=== PATIENT | female | born 1960 | race African-American/Black ===

== ENCOUNTER 2020-04-06 13:57 | Outpatient (CLI) | payer MEDICARE, SELFPAY ==
--- NOTE | ~2020-04-06 | DEXA_ITS ---
Bone Density Report Name: Candy Gaytan Age: 59 Sex: Female Ethnicity: White Date of : 1960 Indication: postmenopausal; prior fracture; Referring Provider: ALONZO DELGADO Study: Bone densitometry was performed. Exam Date: April 06, 2020 Accession number: [id number] Bone Density: Region BMD T-score Z-score Classification AP Spine (L1-L4) 1.015 -0.3 1.1 Normal Femoral Neck (Left) 0.714 -1.2 0.1 Osteopenia Total Hip (Left) 0.974 0.3 1.2 Normal Total Hip Bilateral Avg 0.964 0.2 1.1 Normal Femoral Neck (Right) 0.704 -1.3 0.0 Osteopenia Total Hip (Right) 0.954 0.1 1.0 Normal World Health Organization criteria for BMD impression classify patients as: Normal (T-score at or above -1.0), Osteopenia (T-score between -1.0 and -2.5), or Osteoporosis (T-score at or below -2.5). 10-year Fracture Risk(1): Major Osteoporotic Fracture 13% Hip Fracture 1.0% Reported Risk Factors: [place] (), Neck BMD=0.704, BMI=28.3, previous fracture (1) FRAX(R) Version 3.08. Fracture probability calculated for an untreated patient. Fracture probability may be lower if the patient has received treatment. Clinical Information Provided by Patient: Has had a low trauma fracture Patient maximum height was 61 Menopause Age: 45 Onset of menses at age 15 Number of children 1 Impression: The patient has low bone mass, based on the Right Femoral Neck T-score. The patient has an estimated ten-year risk of hip fracture of 1% and an estimated ten-year risk of major fracture of 13%, based on the WHO FRAX algorithm. The patient has risk factors, including: previous fracture. Discussion: BONE DENSITY IS LOW AT ONE OR MORE SKELETAL SITES. This patient's lowest T-score is low at one or more skeletal sites. It meets the World Health Organization's (WHO) criteria for ?low bone mass? (T-score between -1.0 and -2.5). The patient's 10-year risk of fracture as calculated by FRAX is less than the threshold where pharmacological therapy is recommended by the National Osteoporosis Foundation (NOF). However, all treatment decisions require clinical judgment and consideration of individual patient factors, including patient preferences, comorbidities, previous drug use, risk factors not captured in the FRAX model (e.g., frailty, falls, vitamin D deficiency, increased bone turnover, interval significant decline in bone density) and possible under or overestimation of fracture risk by FRAX. The patient should follow a healthful lifestyle (good nutrition with adequate calcium and vitamin D, and appropriate weight-bearing exercise). Follow-Up: Consider repeating this study in 2 to 3 years to reassess this patient's status, or sooner if there is some new clinical indication. Reported by: MARTINA on 04/06/2020 2:18:00 PM.
== END 2020-04-06 13:58 | disposition home or self-care (01) ==
LOC: ANHIMG 13:59
PROVIDERS: PCP Family Medicine; Visit Provider Obstetrics & Gynecology
DX: Z78.0 Asymptomatic menopausal state (principal); M85.89 Other specified disorders of bone density and structure, multiple sites
CPT/HCPCS: 77080

== ENCOUNTER 2024-08-31 08:04 | Outpatient (CLI) | payer MEDICARE, SELFPAY ==
--- OUTSIDE RECORDS SUMMARY | 2024-08-31 08:13 | XMS_ITS | Clinical Summary ---
Author Organization [facility] Address [address] [place] [address] Phone Care Team Providers Care [employer] Supervisor Name Role Phone Ronna Shi MD Primary Care Provider [phone] Allergies Active Allergy Reactions Criticality Noted Date Comments Codeine Unknown 07/05/2021 Latex Unknown 07/05/2021 Penicillins Unknown 07/05/2021 Prednisone Unknown 07/05/2021 Tramadol Nausea 07/05/2021 Medications cromolyn (OPTICROM) 4 % Solution Place 1 Drop in affected eye(s) 4 times daily. Use in affected eye(s) Active Fluticasone Furoate 27.5 MCG/SPRAY Suspension 2 Puffs by Nasal route daily. Active insulin aspart (NovoLOG) 100 UNIT/ML Solution by Subcutaneous route 3 times daily (after meals). Active Semaglutide,0.2 5 or 0.5MG/DOS, (Ozempic, 0.25 or 0.5 MG/DOSE,) 2 MG/1.5ML Solution Pen-injector by Subcutaneous route. Active pravastatin (PRAVACHOL) 80 MG Tablet Take 80 mg by mouth daily. Active insulin degludec (Tresiba FlexTouch) 200 UNIT/ML Solution Pen-injector by Subcutaneous route. Active Polyethylene Glycol 3350 (MIRALAX PO) Take by mouth. Ac tive DICLOFENAC SODIUM OP Place in affected eye(s). 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 Gender Identity Not on file Sexual Orientation Not on file Last Filed Vital Signs Vital Sign Reading Time Taken Comments Blood Pressure 120/68 11/26/2021 1:34 PM CDT Pulse 98 11/26/2021 1:34 PM CDT Temperature 36.3 ??C (97.3 ??F) 11/26/2021 1:34 PM CD T Respiratory Rate 17 11/26/2021 1:34 PM CDT Oxygen Saturation 100% 11/26/2021 1:34 PM CDT Inhaled Oxygen Concentration - - Weight 78.7 kg (173 lb 6.4 oz) 11/26/2021 1:34 P M CDT Height 154.9 cm (5' 1 ) 11/26/2021 1:34 PM CDT Body Mass Index 32.76 11/26/2021 1:34 PM CDT Plan of Treatment Health Maintenance Due Date Last Done Comments Hepatitis C Virus (HCV) Screening 1960 Pap Smear 1981 Cervical Cancer Screening (CCS) 1990 HPV/Cotest 1990 Cologuard 2010 Immunochemical Fecal Occult Blood 2010 Mammogram 2010 Pneumococcal Immunization (50+ years) (2 of 2 - PCV) 07/12/2022 07/12/2021, 04/16/2020, 04/22/2017 Influenza Immunization (#1) 2024 1011/2020, 04/30/2021, 04/29/2020, Additional history exists SARS-COV-2 Immunization ( season) 2024 05/18/2021, 10/31/2020, 10/03/2020 Colonoscopy 09/11/2031 09/11/2021 Colorectal Cancer Screening 09/11/2031 Respiratory Syncytial Virus (RSV) Immunization (Adult) (1 - 1-dose 75+ series) 2035 09/11/2021 DTaP/Tdap/Td Immunization Discontinued 04/22/2018 TdaP Immunization Completed 04/22/2018 Zoster Immunization Completed 08/09/2020, 0 Pneumococcal Immunization Combined Discontinued 07/12/2021, 04/16/2020, 04/22/2017 Hepatitis B Immunization Aged Out No longer eligible based on patient's age to complete this topic Meningococcal Immunization (ACWY) Aged Out No longer eligible based on patient's age to complete this topic Rotavirus Immunization Aged Out No lo nger eligible based on patient's age to complete this topic Insurance MEDICARE C [employer] Care Teams [employer] M[employer] Supervisor Relationship Specialty Start Date End Date Ronna Shi MD [facility] [place] [address] PCP - [employer] 06/26/21
--- OUTSIDE RECORDS SUMMARY | 2024-08-31 08:13 | XMS_ITS | Data Portability ---
Author Organization [facility] [employer], Main Office Address [address] [place] [address] Care Team Providers Care Clinical Rn Manager Name Role Phone RONNA MAYO Primary Care Provider RONNA MAYO Referring Provider DAVID ETIENNE Tube Filler Assessment No assessment recorded. Plan of Treatment Reminders Order Date Submit Date Provider Last Modified By Organization Details Last Modified Time Details Appointments None recorded. Lab hemoglobin A1C, fingerstick [address], [place], [address], 14:24:28 hemoglobin A1C, fingerstick 2022 023 [email or web address] [address] [place], [place], [address], 3 14:24:26 microalbumi n, urine 2022 023 STEPHANIE Not available 14:22:32 CMP, serum or plasma 2022 023 STEPHANIE Not available 14:01:43 lipid panel, blood 2022 023 STEPHANIE Not available 14:28:51 HbA1c (hemoglobin A1c), blood [email or web address] (Lab), [facility]0 [facility] [address], [place], [address], 4 08:42:21 lipid panel, serum [address] (Lab), [address] [place] [address], [address], 4 08:42:21 CMP, serum or plasma [address] (Lab), [address] [place] [address], [address], 4 08:42:21 CK (creatine kinase), total, serum [address] (Lab), [address] [place] [address], [address], 4 08:42:21 CBC w/ auto diff [address] (Lab), [address] [place] [address], [address], 4 08:42:21 TSH, serum or plasma [address] (Lab), [address] [place] [address], [address], 4 08:42:21 Referral None recorded. Procedures None recorded. Surgeries None recorded. Imaging XR, hip + pelvis, unilateral, 2 or 3 view 2022 023 [facility], [address] , [place], [address], 3 17:05:59 DEXA, axial skeleton + vertebral fracture assessment - *Please call pt to schedule* 2023 024 [facility], [address] [place], [address], 4 14:45:11 Medication Orders metoclopram poly 5 mg tablet 2022 023 [facility] [address], [id number] [place] [address], [address], 3 14:19:21 triamcinolo ne acetonide 0.1 % topical cream 2022 023 [facility] [address], [id number] [place] [address], [address], 3 12:34:22 Medrol (Steven) 4 mg tablets in a dose pack 2022 023 [facility] [address], [address] [place] [address], [address], 4 15:50:30 ketoconazol e 200 mg tablet 2022 023 [place] [address], [address] [place] [address], [address], 4 15:50:13 ketoconazol e 2 % shampoo [email or web address] [place] [address] Pharmacy [facility], [address] [place] [address], [address], 3 14:24:22 Trulicity 3 mg/0.5 mL subcutaneou s pen injector 2022 023 [place] [address], [address] [place] [address], [address], 4 15:53:00 triamcinolo ne acetonide 0.1 % topical cream [email or web address] [place] [address] Pharmacy [address], [address] [place] [address], [address], 3 14:24:22 cyclobenzap rine 10 mg tablet 2023 024 [facility] 435, [address] [place] [address], [address], 16:03:08 promethazin e-DM 6.25 mg-15 mg/5 mL oral syrup 2023 [facility] [address], [address], [address], 15:18:01 prednisone 20 mg tablet 2023 [facility] [address], [address], [address], 15:18:03 pravastatin 40 mg tablet 2023 [facility] [address], [address], [address], 15:16:53 Patient TargetsNo targets recorded. Patient Instructions Encounter Date Encounter Id Patient Instructions Last Modified By Organization Details Last Modified Time 01/21/2024 [id number] she refused a mammogram order. said she has a female doctor samia Not available 01/21/2024 16:10:30 04/21/2024 [id number] dementia rating scale-2* [email or web address] Not available 04/21/2024 15:55:07 alcohol misuse* [email or web address] Not available 04/21/2024 15:56:25 depression screening* [email or web address] Not available 04/21/2024 15:56:33 multi-dimensiona l health assessment questionnaire* [email or web address] Not available 04/21/2024 15:55:00 Personalized [facility] Plan and Screening Recommendations Advance Directives - Do you have one? Yes Advance Directives - Do we have your advance directive on file in your health record? Primary Prevention/Interven tion (prevents or decreases the chance of common diseases from occurring) Smoking Risk: Non Smoker Alcohol Misuse Screening: Negative Weight: Appropriate Overwei ght continue your current weight loss efforts try to lose 5% of your body weight try to lose 10% of your body weight Physical activity: Appropriate physical activity Nutrition: Good Average Fall Risk (screened today): Low Vaccines Pneumococcal: Ordered Recommended today Recommended today, but you have declined Influenza: Ordered Recommended today Recommended today, but you have declined Chronic Disease Risks Stroke: Low Risk Intermediate Risk I have no recommendations Act britney diagnosis, Continue current treatment plan Heart Attack: Low risk Intermediate Risk I have no recommendations Act britney diagnosis, Continue current treatment plan Clogging of the Arteries: Low risk Intermediate Risk I have no recommendations Act britney diagnosis, Continue current treatment plan Diabetes: High Risk Active diagnosis, Continue current treatment plan Secondary Prevention/Interven tion (detects treatable diseases before they may cause symptoms, disability, or ) Breast Cancer Screening with mammogram: No screening necessary Cervical/Uterine/Ov lauren Cancer Screening: No screening necessary Osteoporosis Screening: Your next DEXA in: Ordered Recomme nded today Date Screening Last Performed: Colon Cancer Screening: Colonoscopy Date Screening Last Performed: 2021 Eye Disease Screening: No Eye exam necessary Dementia Risk: Low I have no recommendations Depression Screening: Negative Not available 04/21/2024 15:06:00 Advised Black Cohosh and soy tablets for menopausal symptoms . F./u with speeder hand doctor samia Not available 05/07/2024 11:25:38 Reason for Referral None Reported. Results Created Date Observation Date Name Description Value Unit Range Abnormal Flag Note LastModifiedBy Organization Detail LastModifiedTime 01/09/2001/08/2023 H. pylabe imiesha rstic k H PYLORI positi ve Not Available [address] [place], [place], [address], 01/08/2023 14:15:26 01/30/20 23 01/29/2023 hemog lobin A1C, finge rstic k HgbA1C 6.9 Not Available [address] [place], [place], [address], 01/29/2023 14:14:51 05/14/20 23 05/14/2023 hemog lobin A1C, finge rstic k HgbA1C 8.1 Not Available [address] [place], [place], [address], 05/14/2023 14:19:25 05/27/20 23 05/27/2023 COMPR EHENS BRITNEY METAB OLIC PANEL sodium 142 mmol/ L 137-14 5 Not Available [facility] (Lab) [address] [place], [address], 05/27/2023 14:01:54 05/27/20 23 05/27/2023 COMPR EHENS BRITNEY METAB OLIC PANEL potassium 4.1 mmol/ L 3.5-5. 1 Not Available [facility] (Lab) [address] [place], [address], 05/27/2023 14:01:54 05/27/20 23 05/27/2023 COMPR EHENS BRITNEY METAB OLIC PANEL chloride 107 mmol/ L 98-107 Not Available [facility] (Lab) [address] [place], [address], 05/27/2023 14:01:54 05/27/20 23 05/27/2023 COMPR EHENS BRITNEY METAB OLIC PANEL carbon dioxide 29 mmol/ L 22-30 Not Available [facility] (Lab) [address] [place], [address], 05/27/2023 14:01:54 05/27/20 23 05/27/2023 COMPR EHENS BRITNEY METAB OLIC PANEL anion gap 10.1 mmol/ L 14-22 low Not Available [facility] (Lab) [address] [place], [address], 05/27/2023 14:01:54 05/27/20 23 05/27/2023 COMPR EHENS BRITNEY METAB OLIC PANEL glucose 95 mg/dL 70-99 Not Available [facility] (Lab) [address] [place], [address], 05/27/2023 14:01:54 05/27/20 23 05/27/2023 COMPR EHENS BRITNEY METAB OLIC PANEL BUN 22 mg/dL 8-19 high Not Available [facility] (Lab) [address] [place], [address], 05/27/2023 14:01:54 05/27/20 23 05/27/2023 COMPR EHENS BRITNEY METAB OLIC PANEL creatinine 1.92 mg/dL 0.66-1 .25 high Not Available [facility] (Lab) [address] [place], [address], 05/27/2023 14:01:54 05/27/20 23 05/27/2023 COMPR EHENS BRITNEY METAB OLIC PANEL GFR 32 Refer ence Range : Marsteller ge GFR Healt hy Adult : >60 mL/mi n/1.7 3 m2 Chron ic Kidne y Disea se: 15-60 mL/mi n/1.7 3 m2 Kidne y Failu re: <15/m L/min /1.73 m2 www.n iddk. nih.g ov The MDRD study equat ion has not been valid ated in child berenice <18 years of age; pregn ant women ; the elder ly >85 years of age; or in some racia l or ethni c subgr oups, such as Hisnh nics. Outsi de the valid ated beth eters , estim ated GFR is less accur ate, requi ring clini raul judgm ent on a case- by-ca se basis . Clini raul inter preta tion for other races and ages must be made by the clini janell. The MDRD study equat ion has not been valid ated for the evalu ation of serum creat inine relat ed to nutri tori l statu s or medic ation usage . For perso ns <18 years of age, a pedia tric GFR calcu lator is avail able on the NKF websi te: https ://mihir lopez.bonifacio silva/pr landryess sushmaal s/kdo qi/gf r_cal culat or Not Available [facility] (Lab) [address] [place], [address], 05/27/2023 14:01:54 05/27/20 23 05/27/2023 COMPR EHENS BRITNEY METAB OLIC PANEL alkaline phosphatase 84 U/L 38-126 Not Available [facility] (Lab) [address] [place], [address], 05/27/2023 14:01:54 05/27/20 23 05/27/2023 COMPR EHENS BRITNEY METAB OLIC PANEL alanine aminotransfe rase 29 U/L 0-35 Not Available [facility] (Lab) [address] [place], [address], 05/27/2023 14:01:54 05/27/20 23 05/27/2023 COMPR EHENS BRITNEY METAB OLIC PANEL aspartate aminotransfe rase 51 U/L 15-37 high Not Available [facility] (Lab) [address] [place], [address], 05/27/2023 14:01:54 05/27/20 23 05/27/2023 COMPR EHENS BRITNEY METAB OLIC PANEL bilirubin, total 0.50 mg/dL 0.20-1 .30 Not Available [facility] (Lab) [address] [place], [address], 05/27/2023 14:01:54 05/27/20 23 05/27/2023 COMPR EHENS BRITNEY METAB OLIC PANEL calcium 10.0 mg/dL 8.4-10 .2 Not Available [facility] (Lab) [address] [place], [address], 05/27/2023 14:01:54 05/27/20 23 05/27/2023 COMPR EHENS BRITNEY METAB OLIC PANEL total protein 7.2 g/dL 6.3-8. 2 Not Available [facility] (Lab) [address] [place], [address], 05/27/2023 14:01:54 05/27/20 23 05/27/2023 COMPR EHENS BRITNEY METAB OLIC PANEL albumin 4.0 g/dL 3.4-5. 0 Not Available [facility] (Lab) [address] [place], [address], 05/27/2023 14:01:54 05/27/20 23 05/27/2023 COMPR EHENS BRITNEY METAB OLIC PANEL globulin 3.2 g/dL 2.6-4. 2 Not Available [facility] (Lab) [address] [place], [address], 05/27/2023 14:01:54 05/27/20 23 05/27/2023 COMPR EHENS BRITNEY METAB OLIC PANEL A/G ratio 1.3 ratio 1.0-2. 0 Not Available [facility] (Lab) [address] [place], [address], 05/27/2023 14:01:54 05/27/20 23 05/27/2023 LIPID PANEL cholesterol 207 mg/dL 140-19 9 high NIH CRISTOFER NSUS RECOM MENDA TION FOR SHERRY STERO L: ADULT CHILD LOW RISK: <200 <170 BORDE RLINE : <200- 239 ----- HIGH RISK: >240 >200 Not Available [facility] (Lab) [address] [place], [address], 05/27/2023 14:01:48 05/27/20 23 05/27/2023 LIPID PANEL triglyceride s 219 mg/dL 0-150 high NIH CRISTOFER NSUS REPOR T RECOM MENDA TION FOR TRIGL YCERI CESAR: ADULT CHILD LOW RISK: <150 ----- BODER LINE: 150-1 99 ----- HIGH RISK: >200 ----- Not Available [facility] (Lab) [address] [place] [address], [address], 05/27/2023 14:01:48 05/27/20 23 05/27/2023 LIPID PANEL HDL cholesterol 41 mg/dL 40- Not Available [facility] (Lab) [address] [place] [address], [address], 05/27/2023 14:01:48 05/27/20 23 05/27/2023 LIPID PANEL LDL cholesterol, calculated 122 mg/dL 0-130 NIH CRISTOFER NSUS REPOR T RECOM MENDA TIONS FOR LDL: ADULT CHILD LOW RISK <130 <110 (OPTI MAL LDL) <100 ----- BORDE RLINE : 130-1 59 ----- HIGH RISK: >160 >130 A TRIGL YCERI DE RESUL T >400 INVAL IDATE S THE CALCU LATIO N FOR LDL FRACT IONAT ION - THE LDL RESUL T WILL NOT BE REPOR ARTIE. Not Available [facility] (Lab) [address] [place], [address], 05/27/2023 14:01:48 05/27/20 23 05/27/2023 MICRO ALBUM IN RANDO M URINE microalbumin , urine 18.5 mg/L 0.0-16 .6 high Not Available [facility] (Lab) [address] [place], [address], 05/27/2023 14:22:32 05/14/20 23 XR, hip, unila teral , 2 or 3 view [facility] [address] [place] [address] Patien t Name: DON GAYTAN ion #: [id number] Sex: F : 1959 9 Dictat ed By: Linnette Herndon Attend ing Physic shilpa: ROBIN MENDEZ, RUNDA Orderi Physic shilpa: ROBIN MENDEZ, RUNDA Exam Date: 2022 13:35 PM Exam Name: XR HIP/PE LVIS RT 2-3V Admitt ing Diagno sis(es ): CLINIC AL INDICA TION: Groin pain TECHNI QUE: 3 radiog raphic views of the pelvis and right hip were obtain ed. Compar inderjit: None FINDIN GS: There is no eviden ce of acute fractu re or disloc ation. The visual ized joint space is well mainta ined. The alignm ent is anatom ical. Soft tissue s are unrema rkable . IMPRES ANDREAS: No acute fractu re or disloc ation. Electr onical ly Signed by: Linnette Herndon at 2022 15:57: 35 PM Page 1 [email or web address] [facility] (Imaging) [address] [place], [address], 05/15/2023 08:45:29 05/14/20 23 05/14/2023 XR, hip + pelvi s, unila teral , 2 or 3 view No observ ation record ed. [email or web address] [facility] [address] [place], [address], 05/15/2023 08:45:30 12/10/19 24 12/10/2023 MAMMO , scree benny, digit al, bilat eral No observ ation record ed. [address] [place], [address], 12/11/2023 12:14:00 05/10/20 24 05/10/2024 DEXA, axial skele ton + verte bral fract ure asses sment No observ ation record ed. [address] [place], [address], 06/28/2024 12:21:29 Result Notes Documentation Provider Name and Address Organization Details Recorded Time Mammo, Screening, Digital, Bilateral : ordered by Dr christi mas [place] [facility] 12/11/2023 12:14:00 Problems Name Problem SNOMED Code Status Onset Date Resolution Date Notes Provider Name and Address Organization Details Recorded Time Chest pain 26663405 Active 2022 Not Available [facility] 3 09:04:48 Pain of left shoulder joint 29847062498 436440 Active 2022 Not Available [facility] 3 09:04:48 Epigastri c pain 50735340 Active 2022 Not Available [facility] 3 09:04:48 Nausea 122617217 Active 2022 Not Available [facility] 3 09:04:[address] pylori gastroint estinal tract infection 483324246 Active 2022 Not Available [facility] 3 09:04:48 Menopausa l flushing 118054546 Active 2022 Not Available [facility] 3 09:04:48 Gastropar esis due to type 2 diabetes mellitus 138843985 Active 2022 Not Available [facility] 3 09:04:48 Pruritic rash 05905742 Active 2022 Not Available [facility] 3 09:04:48 Gastroeso phageal reflux disease 933572905 Active 2022 Not Available [facility] 3 09:04:48 Inguinal pain 158898263 Active 2022 Not Available [facility] 3 09:04:47 Dry skin dermatiti s 840381768 Active 2022 Not Available [facility] 3 09:04:48 Pityriasi s alba 817244498 Active 2022 Not Available [facility] 3 09:04:48 Bronchiti s 37265320 Active 2023 GÓMEZ [place] [address], [place], [address] , [employer] [facility] 4 10:55:54 Screening for osteoporo sis Active 2023 GÓMEZ [place] [address], [address], [place], [address] , [employer] [facility] 4 15:05:44 Cough 70591655 Active 2023 GÓMEZ [place] [address], [address], [place], [address] , [employer] [facility] 4 15:17:31 Osteopeni a 875383697 Active 2023 bilateral femoral neckGÓMEZ Suarez [address], [facility] [address], [place], [address] , [place] - [facility] 4 18:13:53 Complicat ion of procedure 845821247 Active Not Available [facility] 3 09:04:47 Bilateral shoulder joint pain 12904384402 282842 Active 2020 Not Available [facility] 3 09:04:47 Injury of shoulder region 354216462 Active Not Available [facility] 3 09:04:47 Submandib ular lymphaden opathy 958060735 Active Not Available [facility] 3 09:04:47 Constipat ion 47346041 Active Not Available [facility] 3 09:04:47 Acute sinusitis 89726636 Active Not Available [facility] 3 09:04:47 Fracture of ankle 96687338 Active Not Available [facility] 3 09:04:48 Fracture therapy follow-up 357395851 Active Not Available [facility] 3 09:04:48 Chronic constipat ion 572025481 Active Not Available [facility] 3 09:04:48 Hand eczema 803303622 Active Not Available [facility] 3 09:04:48 Shoulder joint pain 978074590 Active Not Available [facility] 3 09:04:48 Tendon contractu re 949527543 Active Not Available [facility] 3 09:04:48 Thoracic back sprain 810794019 Active Not Available [facility] 3 09:04:48 Lower back injury 697646829 Active Not Available [facility] 3 09:04:48 Current tear of medial cartilage AND/OR meniscus of knee Active Not Available [facility] 3 09:04:48 Type 2 diabetes mellitus without complicat ion 770048856 Active Not Available [facility] 3 09:04:48 Arthritis 2610749 Active Not Available [facility] 3 09:04:48 Hypertens britney disorder 14406097 Active Not Available [facility] 3 09:04:48 Osteoarth ritis 968600278 Active Not Available [facility] 3 09:04:48 Eczema 07835205 Active Not Available [facility] 3 09:04:48 Shoulder pain 72461563 Active Not Available [facility] 3 09:04:48 Candidias is of skin 73511054 Active Not Available [facility] 3 09:04:48 Upper respirato ry infection 71188425 Active Not Available [facility] 3 09:04:48 Hyperlipi demia 54873265 Active Not Available [facility] 3 09:04:48 Occult blood detected in feces 78241467 Active Not Available [facility] 3 09:04:48 Essential hypertens ion 33024665 Active Not Available [facility] 3 09:04:48 Tinea pedis 4488004 Active Not Available [facility] 3 09:04:48 Allergic rhinitis 94284920 Active Not Available [facility] 3 09:04:48 Closed trimalleo lar fracture 0126876 Active Not Available [facility] 3 09:04:48 Diabetes mellitus 34291015 Active Not Available [facility] 3 09:04:48 Decreased renal function 61359340 Active Not Available [facility] 3 09:04:48 Fatigue 62715405 Active Not Available [facility] 3 09:04:48 Tinea corporis 85554732 Active Not Available [facility] 3 09:04:48 Problem Notes None recorded. Procedures Surgical History Date Name Laterality Status Provider Name and Address Organization Details Recorded Time 4 Medicare Wellness CPT Code, subsequent completed Lisa Coffman, RN [place] [employer] [facility] 04/21/2024 14:56:53 Imaging Results Imaging Date Name Status LastModified by Organiz ation Details LastModified Time 05/14/2023 XR, hip, unilateral, 2 or 3 view completed [email or web address] [facility] (Imaging) [address] [place], [address], 05/15/2023 08:45:29 05/14/2023 XR, hip + pelvis, unilateral, 2 or 3 view completed [facility] [address] [place], [address], 05/15/2023 08:45:30 12/10/2023 MAMMO, screening, digital, bilateral completed [address] [place], [address], 12/11/2023 12:14:00 05/10/2024 DEXA, axial skeleton + vertebral fracture assessment completed [address] [place], [address], 06/28/2024 12:21:29 Procedure Notes None recorded. Medical Equipment None Reported. Allergies Allergen ID Allergen Name Allergen Category Reaction Reaction Severity Criticality Documentation Date Start Date Code Code System Note Provider Name and Address Organization Details Recorded Time 8698 tramadol medicatio n nausea Not available Not available 09/24/2022 03697 RxNorm Not Available [facility] 3 05:06:07 8699 Product containin g penicilli n and antibioti c (product) medicatio n Not available Not available Not available 09/24/2022 66398 05 SNOMED Not Available [facility] 3 05:06:07 8700 latex environme nt,medica tion Not available Not available Not available 09/24/2022 30840 91 RxNorm Not Available [facility] 3 05:06:07 8701 codeine medicatio n Not available Not available Not available 09/24/2022 2670 RxNorm Not Available [facility] 3 05:06:07 8702 prednison e medicatio n Not available Not available Not available 09/24/2022 8640 RxNorm Not Available [facility] 3 05:06:07 Medications Name Sig Start Date Stop Date Status Note LastModified by Organization Details LastModified Time celecoxib 200 mg capsule Take 1 capsule every day by oral route with meal(s) for 30 days. active Not Available Not Available No t Available cyclobenz aprine 10 mg tablet TAKE 1 TABLET BY MOUTH TWICE DAILY NEEDED FOR MUSCLE SPASM active Not Available Not Available No t Available terbinafi ne HCl 1 % topical cream apply in between toes twice daily active Not Available Not Available No t Available promethaz ine-DM 6.25 mg-15 mg/5 mL oral syrup Take 5 mL every 4 hours by oral route as needed for 10 days. active Not Available Not Available No t Available azelastin e 0.05 % eye drops active Not Available Not Available No t Available venlafaxi ne ER 37.5 mg capsule,e xtended release 24 hr TAKE 1 CAPSULE BY MOUTH ONCE DAILY 01/20 completed Not Available Not Available Not Available prednison e 10 mg tablet TAKE 1 TAB BY MOUTH THREE TIMES DAILY FOR 3 DAYS 1 TAB TWICE DAILY FOR 2 DAYS THEN 1 TAB DAILY FOR 1 DAY. 01/29 completed Not Available Not Available Not Available atorvasta tin 20 mg tablet TK 1 T PO ONCE D active Not Available Not Available No t Available ketoconaz ole 2 % shampoo APPLY TO THE AFFECTED AREA(S), LATHER, LEAVE IN PLACE FOR 5 MINUTES, AND THEN RINSE OFF WITH WATER BY TOPICAL ROUTE ONCE DAILY active Not Available Not Available No t Available ammonium lactate 12 % lotion Apply to feet daily as needed 11/16 completed Not Available Not Available Not Available BD Insulin Syringe 1 mL 25 x 1 active Not Available Not Available Not Available cetirizin e 10 mg tablet TAKE 1 TABLET BY MOUTH ONCE DAILY active Not Available Not Available No t Available ketoconaz ole 200 mg tablet Take by oral route for 14 days. 01/20 completed Not Available Not Available Not Available lisinopri l 20 mg-hydroc hlorothia zide 12.5 mg tablet Take 1 tablet by mouth once daily active Not Available Not Available No t Available azithromy michael 250 mg tablet TAKE 2 TABLETS BY MOUTH ON DAY 1, AND THEN TAKE 1 TABLET BY MOUTH ONCE A DAY ON DAY 2 THROUGH DAY 5 04/21 completed Not Available Not Available Not Available pravastat in 40 mg tablet Take 1 tablet every day by oral route at dinner for 30 days. active Not Available Not Available No t Available ibuprofen 800 mg tablet Take 1 tablet 3 times a day by oral route for 30 days. active Not Available Not Available No t Available benzonata te 200 mg capsule Take 1 capsule 3 times a day by oral route as needed. 12/21 completed Not Available Not Available Not Available clarithro mycin 500 mg tablet TAKE 1 TABLET BY MOUTH EVERY 12 HOURS FOR 14 DAYS 01/20 completed Not Available Not Available Not Available hydrocodo ne 5 mg-acetam inophen 325 mg tablet TAKE 1 TO 2 TABLETS BY MOUTH EVERY 6 HOURS NEEDED 06/15 completed Not Available Not Available Not Available ondansetr on HCl 8 mg tablet TAKE 1 TABLET BY MOUTH THREE TIMES DAILY NEEDED active Not Available Not Available No t Available DesOwen 0.05 % topical cream Apply by topical route.up to bid active Not Available Not Available No t Available meloxicam 15 mg tablet TAKE 1 TABLET BY MOUTH ONCE DAILY 01/20 completed Not Available Not Available Not Available lisinopri l 20 mg tablet TK 1 T PO D active Not Available Not Available No t Available ondansetr on HCl 4 mg tablet active Not Available Not Available No t Available famotidin e 40 mg tablet 04/30 completed Not Available Not Available Not Available bupivacai ne HCl 0.5 % (5 mg/mL) injection solution Take 20 mg by injectio n route. 10/03 completed Not Available Not Available Not Available prednison e 20 mg tablet Take 2 tabs PO twice daily for 2 days; 1 tab PO twice daily for 5 days; 1/2 tab PO twice daily for 2 days; 1/2 tab PO once for 1 day. TAKE 2ND DOSE EVERYDAY AT NOON-10 DAY COURSE active Not Available Not Available No t Available alendrona te 70 mg tablet Take 1 tablet every week by oral route for 30 days, for osteopen ia. active Not Available Not Available No t Available Doc-Q-Lac e 100 mg capsule TK ONE C PO QD active Not Available Not Available No t Available cromolyn 4 % eye drops INSTILL 1 DROP INTO BOTH EYES TWICE A DAY active Not Available Not Available No t Available clobetaso l 0.05 % topical cream APPLY A THIN LAYER TO AFFECTED AREA(S) TWICE DAILY 01/20 completed Not Available Not Available Not Available Lantus U-100 Insulin 100 unit/mL subcutane ous solution INJECT 30 UNITS SUBCUTAN EOUSLY DAILY AT BEDTIME 05/11 completed Not Available Not Available Not Available Accu-Chek Softclix Lancets active Not Available Not Available Not Available metronida zole 500 mg tablet TAKE 1 TABLET BY MOUTH EVERY 12 HOURS FOR 14 DAYS 01/29 completed Not Available Not Available Not Available bacitraci n zinc 500 unit/gram topical ointment COTY TO WOUND BID active Not Available Not Available No t Available prochlorp erazine maleate 10 mg tablet TAKE 1 TABLET BY MOUTH THREE TIMES DAILY NEEDED active Not Available Not Available No t Available insulin syringe U-100 with needle 1 mL 29 gauge x 7/16 U WITH INSULIN TID WITH MEALS 05/30 completed Not Available Not Available Not Available ciproflox acin 500 mg tablet Take 1 tablet every 12 hours by oral route for 10 days. active Not Available Not Available No t Available omeprazol e 40 mg capsule,d elayed release TAKE ONE CAPSULE BY MOUTH DAILY 04/30 completed Not Available Not Available Not Available tramadol 50 mg tablet TAKE 1 TO 2 TABLETS BY MOUTH EVERY 6 HOURS 01/20 completed Not Available Not Available Not Available triamcino lone acetonide 0.1 % topical cream Apply 1 applicat ion twice a day by topical route. active Not Available Not Available No t Available Depo-Medr ol 80 mg/mL suspensio n for injection Take 1 mL by injectio n route. 05/31 completed Not Available Not Available Not Available prednison e 10 mg tablets in a dose pack Take 1 tab by mouth, 3 times a day for 3 daysTake 1 tab by mouth 2 times a day for 2 daysTake 1 tab by mouth once a day for 1 day 01/29 completed Not Available Not Available Not Available amoxicill in 875 mg tablet Take 1 tablet every 12 hours by oral route for 14 days. active Not Available Not Available No t Available hydromorp grace 2 mg tablet active Not Available Not Available Not Available pravastat in 80 mg tablet Take 1 tablet by mouth once daily active Not Available Not Available No t Available metoclopr amide 5 mg tablet TAKE 1 TABLET BY MOUTH 3 TIMES DAILY BEFORE MEAL(S) active Not Available Not Available No t Available methocarb nelly 750 mg tablet Take 1 tablet 3 times a day by oral route as needed for 30 days. active Not Available Not Available No t Available triamcino lone acetonide 0.1 % dental paste COTY TID UTD active Not Available Not Available No t Available Humalog U-100 Insulin 100 unit/mL subcutane ous solution Inject 18 units with each meal TID 12/14 completed Not Available Not Available Not Available Kenalog 10 mg/mL suspensio n for injection In office injectio n administ ered by the provider 10/03 completed [facility]: [phone] 11-13 Not Available Not Available Not Available benzonata te 100 mg capsule TAKE 1 CAPSULE BY MOUTH EVERY 8 HOURS NEEDED active Not Available Not Available No t Available hydrocodo ne 7.5 mg-acetam inophen 325 mg tablet active Not Available Not Available Not Available cephalexi n 500 mg capsule TK 2 CS PO Q 6 H PRN active Not Available Not Available No t Available nystatin 100,000 unit/gram topical cream APPLY TO THE AFFECTED AREA(S) BY TOPICAL ROUTE 2 TIMES PER DAY active Not Available Not Available No t Available ranitidin e 150 mg tablet TAKE 1 TABLET BY MOUTH TWICE DAILY 05/31 completed Not Available Not Available Not Available clotrimaz ole-betam ethasone 1 %-0.05 % topical cream APPLY TO THE AFFECTED AND SURROUND ING AREAS OF SKIN TOPICALL Y TWICE DAILY IN THE MORNING AND EVENING FOR 14 DAYS. 10/03 completed Not Available Not Available Not Available lisinopri l 10 mg tablet Take 1 tablet every day by oral route. active Not Available Not Available No t Available syringe (disposab le) 3 mL use to inject insulin TID 07/08 completed Not Available Not Available Not Available omeprazol e 20 mg capsule,d elayed release TAKE 1 CAPSULE BY MOUTH ONCE DAILY IN THE MORNING active Not Available Not Available No t Available diclofena c sodium 75 mg tablet,de layed release Take 1 tablet twice a day by oral route. 01/20 completed Not Available Not Available Not Available hydroxyzi ne HCl 25 mg tablet active Not Available Not Available No t Available pravastat in 20 mg tablet active Not Available Not Available Not Available Novolog U-100 Insulin aspart 100 unit/mL subcutane ous solution INJECT 20 UNITS SUBCUTAN EOUSLY THREE TIMES DAILY WITH MEALS 01/08 completed Not Available Not Available Not Available insulin syringe U-100 with needle 1 mL 29 gauge x 1/2 use with insulin 3 times daily with meals active Not Available Not Available No t Available nystatin 100,000 unit/gram topical powder apply to affected area BID prn active Not Available Not Available No t Available methylpre dnisolone 4 mg tablets in a dose pack USE DIRECTED 01/20 completed Not Available Not Available Not Available albuterol sulfate HFA 90 mcg/actua tion aerosol inhaler Inhale 2 puffs 3 times a day by inhalati on route as needed for 30 days. active Not Available Not Available No t Available losartan 50 mg-hydroc hlorothia zide 12.5 mg tablet TAKE 1 TABLET BY MOUTH ONCE DAILY active Not Available Not Available No t Available Percocet 5 mg-325 mg tablet Take 1-2 TABLET EVERY4- 6 HOURS by oral route. active Not Available Not Available No t Available ondansetr on 4 mg disintegr ating tablet 05/11 completed Not Available Not Available Not Available fluticaso ne propionat e 50 mcg/actua tion nasal spray,lyndon pension USE 2 SPRAY(S) IN EACH NOSTRIL ONCE DAILY active Not Available Not Available No t Available doxycycli ne hyclate 100 mg tablet 11/16 completed Not Available Not Available Not Available naproxen 500 mg tablet TAKE 1 TABLET BY MOUTH TWICE DAILY WITH FOOD active Not Available Not Available No t Available amoxicill in 875 mg-potass ium clavulana te 125 mg tablet TAKE 1 TABLET BY MOUTH EVERY 12 HOURS 02/13 completed Not Available Not Available Not Available oxycodone 5 mg tablet active Not Available Not Available Not Available Pneumovax -23 25 mcg/0.5 mL injection syringe 05/11 completed Not Available Not Available Not Available Novolog Mix 70-30 FlexPen U-100 Insulin 100 unit/mL subcutane ous pen INJECT 18 UNITS SUBCUTAN EOUSLY THREE TIMES DAILY WITH MEALS 03/10 completed Not Available Not Available Not Available Lotrimin Ultra 1 % topical cream APPLY TO THE AFFECTED AND SURROUND ING AREAS OF SKIN BY TOPICAL ROUTE ONCE DAILY active Not Available Not Available No t Available Novolog FlexPen U-100 Insulin aspart 100 unit/mL (3 mL) subcutane ous INJECT 20 UNITS SUBCUTAN EOUSLY THREE TIMES DAILY BEFORE MEAL(S) active Not Available Not Available No t Available cyclobenz aprine 5 mg tablet 04/30 completed Not Available Not Available Not Available BD Ultra-Fin e Mini Pen Needle 31 gauge x 3/16 05/24 completed Not Available Not Available Not Available Boniva 150 mg tablet Take 1 tablet every month by oral route. 01/06 completed Not Available Not Available Not Available losartan 100 mg-hydroc hlorothia zide 12.5 mg tablet Take 1 tablet every day by oral route. active Not Available Not Available No t Available Novolog FlexPen U-100 Insulin 18 units TID with each meal 06/15 completed Not Available Not Available Not Available lidocaine (PF) 10 mg/mL (1 %) injection solution In office injectio n administ ered by the provider 08/13 completed [facility]: [phone] 01-10 Not Available Not Available Not Available fenofibra te nanocryst allized 145 mg tablet active Not Available Not Available Not Available Pylera 140 mg-125 mg-125 mg capsule active Not Available Not Available Not Available Symbicort 80 mcg-4.5 mcg/actua tion HFA aerosol inhaler INHALE 2 PUFFS BY MOUTH TWICE DAILY active Not Available Not Available No t Available Calcium 600 + D(3) 600 mg-10 mcg (400 unit) tablet Take 1 tablet twice a day by oral route for 30 days, for osteopen ia. 2023 active Not Available Not Available Not Avai lable Lantus Solostar U-100 Insulin 100 unit/mL (3 mL) subcutane ous pen INJECT 55 UNITS SUBCUTAN EOUSLY NIGHTLY AT BEDTIME active Not Available Not Available No t Available Humalog KwikPen (U-100) Insulin 100 unit/mL subcutane ous Inject 15 units 3 times a day by subcutan eous route before meals. active Not Available Not Available No t Available Adacel (Tdap Adolesn/A dult)(PF) 2 Lf-(2.5-5 -3-5)-5 Lf/0.5 mL IM syringe 07/08 completed Not Available Not Available Not Available Prolia 60 mg/mL subcutane ous syringe active Not Available Not Available Not Available Suprep Bowel Prep Kit 17.5 gram-3.13 gram-1.6 gram oral solution POUR ONE 6-OUNCES BOTTLE OF SUPREP LIQUID INTO THE MIXING CONTAINE R. ADD COOL DRINKING WATER TO THE 16 OZ LINE ON THE CONTAINE R AND MIX. DRINK ALL THE LIQUID IN THE CONTAINE R, THEN DRINK TWO MORE 16 OZ CONTAINE RS OF WATER OVER THE NEXT 1 HOUR 10/03 completed Not Available Not Available Not Available TRUEplus Lancets 33 gauge active Not Available Not Available Not Available Linzess 145 mcg capsule Take 1 capsule every day by oral route. active Not Available Not Available No t Available Levemir FlexTouch U-100 Insulin 100 unit/mL (3 mL) subcutane ous pen Inject 40 units by subcutan eous route. 07/03 completed Not Available Not Available Not Available True Metrix Glucose Test Strip CHECK BLOOD SUGAR THREE TIMES DAILY active Not Available Not Available No t Available True Metrix Glucose Meter CHECK BLOOD SUGAR TWICE DAILY DIRECTED active Not Available Not Available No t Available Trulicity 1.5 mg/0.5 mL subcutane ous pen injector INJECT 1.5 MG SUBCUTAN EOUSLY ONCE A WEEK 01/20 completed Not Available Not Available Not Available insulin degludec (U-200) 200 unit/mL (3 mL) subcutane ous pen INJECT 65 UNITS SUBCUTAN EOUSLY ONCE DAILY active Not Available Not Available No t Available Tresiba FlexTouch U-100 insulin 100 unit/mL (3 mL) subcutane ous pen 2023 active Not Available Not Available Not Avai lable Fluarix Quad (PF) 60 mcg (15 mcg x 4)/0.5 mL IM syringe 05/11 completed Not Available Not Available Not Available Shingrix (PF) 50 mcg/0.5 mL intramusc ular suspensio n, kit 08/15 completed Not Available Not Available Not Available Ozempic 0.25 mg or 0.5 mg (2 mg/1.5 mL) subcutane ous pen injector INJECT 0.5MG SUBCUTAN EOUSLY ONCE WEEKLY 01/08 completed Not Available Not Available Not Available Fluzone Quad (PF) 60 mcg (15 mcg x 4)/0.5 mL IM syringe PHARMACI ST ADMINIST ERED IMMUNIZA TION ADMINIST ERED AT TIME OF DISPENSI NG active Not Available Not Available No t Available Fluzone Quad (PF) 60 mcg (15 mcg x 4)/0.5 mL IM syringe active Not Available Not Available Not Available Trulicity 3 mg/0.5 mL subcutane ous pen injector INJECT 3MG SUBCUTAN EOUSLY ONCE A WEEK 01/20 completed Not Available Not Available Not Available Ozempic 1 mg/dose (4 mg/3 mL) subcutane ous pen injector Inject by subcutan eous route. active pt reported Not Available Not Available Not Available Ozempic 2 mg/dose (8 mg/3 mL) subcutane ous pen injector Inject 2 mg every week by subcutan eous route in the morning for 30 days. 05/14 completed Not Available Not Available Not Available Vitals Date Recorded Body height Body mass index (BMI) Body weight Body temperature Heart rate Oxygen saturation Oxygen saturation in Arterial blood by Pulse oximetry Systolic blood pressure Diastolic blood pressure Provider Name and Address Organization Details Last Updated DateTime 3 158.75 cm 30.1 kg/m2 75416.9 3 g 97.8 [degF] 86 /min 97 % 97 % 122 mm[Hg] 80 mm[Hg] JOY Carvajal [facility] [employer] [facility] 3 14:04:19 Date Recorded Body height Body mass index (BMI) Body weight Body temperature Heart rate Oxygen saturation Oxygen saturation in Arterial blood by Pulse oximetry Systolic blood pressure Diastolic blood pressure Provider Name and Address Organization Details Last Updated DateTime 3 158.75 cm 30.6 kg/m2 38709.7 g 97.9 [degF] 107 /min 97 % 97 % 114 mm[Hg] 60 mm[Hg] JOY Carvajal [facility] [employer] [facility] 3 12:19:33 Date Recorded Body height Body mass index (BMI) Body weight Body temperature Heart rate Oxygen saturation Oxygen saturation in Arterial blood by Pulse oximetry Systolic blood pressure Diastolic blood pressure Provider Name and Address Organization Details Last Updated DateTime 3 158.75 cm 31.9 kg/m2 47983.8 5 g 97.6 [degF] 107 /min 97 % 97 % 122 mm[Hg] 80 mm[Hg] Velma Knott MA [facility] [employer] [facility] 3 14:03:12 Date Recorded Body height Body mass index (BMI) Body weight Body temperature Heart rate Oxygen saturation Oxygen saturation in Arterial blood by Pulse oximetry Respiratory rate Systolic blood pressure Diastolic blood pressure Provider Name and Address Organization Details Last Updated DateTime 4 158.75 cm 31.5 kg/m2 07010.6 6 g 98.2 [degF] 101 /min 96 % 96 % 16 /min 130 mm[Hg] 74 mm[Hg] LUIZA Castillo [facility] [employer] [facility] 4 15:57:46 Date Recorded Body height Body mass index (BMI) Body weight Body temperature Heart rate Respiratory rate Oxygen saturation Oxygen saturation in Arterial blood by Pulse oximetry Systolic blood pressure Diastolic blood pressure Provider Name and Address Organization Details Last Updated DateTime 4 158.75 cm 30.8 kg/m2 81925.3 g 98.4 [degF] 111 /min 16 /min 98 % 98 % 136 mm[Hg] 68 mm[Hg] LUIZA Castillo [facility] [employer] 4 15:03:34 Social History Question Answer Notes LastModified by Organizat ion Details LastModified Time What Is Your Level Of Alcohol Consumption? None [id number] Information not available 09/24/2022 What Is Your Level Of Caffeine Consumption? None [id number] Information not available 09/24/2022 What Type Of Diet Are You Following? REGULAR [id number] Information not available 09/24/2022 What Was The Date Of Your Most Recent Tobacco Screening? 04/21/2024 Information not available 04/21/2024 How Much Tobacco Do You Smoke? No [id number] Information not available 09/24/2022 Sex: Unknown Functional Status None recorded. Mental Status None recorded. Family History Nothing Reported. Medical History Condition Response DIABETES, TYPE Y HYPERTENSION Y Gynecological HistoryNo gynecological history recorded. Obstetrics History GPAL:G 0 P 0 0 0 0 Immunizations Vaccine Type Date Status Note Provider Nam e and Address Organization Details Recorded Time COVID-19, mRNA, LNP-S, PF, 30 mcg/0.3 mL dose 4 completed MAGDALENA Moss [facility] [employer] [facility] 05/17/2024 17:09:36 influenza, unspecified formulation 4 completed MAGDALENA Moss - [facility] 05/17/2024 17:10:59 Influenza, split virus, quadrivalent, preservative 2 completed Not Available [facility] 2023 09:04:49 COVID-19, mRNA, LNP-S, bivalent, PF, 30 mcg/0.3 mL dose 2 completed Not Available [facility] 2023 09:04:49 pneumococcal polysaccharide PPV23 1 completed Not Available [facility] 2023 09:04:49 COVID-19, mRNA, LNP-S, PF, 100 mcg/0.5mL dose or 50 mcg/0.25mL dose 1 completed Not Available [facility] 2023 09:04:49 Influenza, split virus, quadrivalent, preservative 1 completed Not Available [facility] 2023 09:04:48 Influenza, split virus, quadrivalent, preservative 6 completed Not Available [facility] 2023 09:04:48 Past Encounters Encounter ID Performer Location Encounter Start Date Encounter Closed Date Diagnosis/Indication Diagnosis SNOMED-CT Code Diagnosis ICD10 Code Diagnosis Note [id number] [facility] [place] [address] 12/03/2020 00:00:00 12/03/2020 20:36:25 [id number] [facility] [place] [address] 12/17/2020 00:00:00 12/17/2020 20:42:57 [id number] [facility] [address] [place] [address] 12/28/2020 00:00:00 12/28/2020 16:38:27 [id number] [facility] [address] [place] [address] 03/01/2021 00:00:00 03/01/2021 14:06:12 [id number] [facility] [place] [address] [place] [address] 03/19/2021 00:00:00 03/20/2021 06:41:34 [id number] [facility] [place] [address] , [place] [address] 04/09/2021 00:00:00 04/10/2021 05:55:43 [id number] [facility] [place] [address] , [place] [address] 06/17/2021 00:00:00 06/17/2021 20:29:12 [id number] [facility] [address] [place] [address] 07/04/2021 00:00:00 07/04/2021 16:03:22 [id number] [facility] [address] [place] [address] 08/13/2021 00:00:00 08/13/2021 14:37:15 [id number] [facility] [address] [place] [address] 10/02/2021 00:00:00 10/02/2021 14:21:37 [id number] [facility] [place] [address] [place] [address] 10/03/2021 00:00:00 10/03/2021 19:58:29 [id number] [facility] [address] [place] [address] 10/08/2021 00:00:00 10/08/2021 14:46:05 [id number] [facility] [place] [address] [place] [address] 01/06/2022 00:00:00 01/06/2022 20:27:21 [id number] [facility] [place] [address] [facility] [address] , [place] [address] 01/08/2022 00:00:00 01/08/2022 18:24:42 [id number] [facility] [place] [address] [facility] [place] [address] 03/03/2022 00:00:00 03/03/2022 20:27:40 [id number] [facility] [place] [address] [place] [address] [place] [address] 04/08/2022 00:00:00 04/08/2022 21:04:50 [id number] [facility] [place] [address] [place] [address] [place] [address] 07/09/2022 00:00:00 07/09/2022 19:19:15 [id number] Ronna Shi MD [facility] [place] [address] [place] [address] [place] [address] 10/08/2022 13:43:56 10/08/2022 14:27:03 Type 2 diabetes mellitus without complication 150935047 E11.9 A1C is 6.8% Continue same meds. Chest pain 33470591 R07. 9 Normal ECG Pain of le ft shoulder joint 3471681503 3571491 M25.512 Contact orthopedic doctor to get in sooner than 03/18 [id number] Ronna Shi MD [facility] [place] [address] [place] [address] [place] [address] 01/08/2023 13:50:37 01/08/2023 14:42:05 Type 2 diabetes mellitus without complication 567307086 E11.9 A1C is 6.6 % Continue same meds. Epigastric pain 69494089 R10.13 Nausea 811435272 R11.0 Helicobact er pylori gastrointestinal tract infection 599004862 A04.8 Menopausal flushing 1984 04574 N95.1 [id number] Ronna Shi MD [facility] [place] [address] [facility] [place] [address] 01/29/2023 13:49:37 01/29/2023 15:13:25 Type 2 diabetes mellitus without complication 352100538 E11.9 A1C is 6.9% Continue same meds. Doing ozempic F/u in 3 months. Gastropare sis due to type 2 diabetes mellitus 184763842 E11.43 [id number] Ronna Shi MD [facility] [place] [address] [place] [address] [place] [address] 02/24/2023 12:13:35 02/24/2023 12:38:54 Pruritic rash 91533798 L28.2 Stop body cream and use benadryl. [id number] Ronna Shi MD [facility] [place] [address] [facility] [place] [address] 05/14/2023 13:56:19 05/14/2023 14:28:50 Type 2 diabetes mellitus without complication 611123004 E11.9 A1C is 8.1% % Will increase trulicity to 3 mg weekly Inguinal pain 358383961 R10.2 aleve and heat Dry skin dermatitis 2600 98596 L85.3 Pityriasis alba 63445394 4 L30.5 Hyperlipidemia 04976324 E78.5 [id number] GÓMEZ [place] [facility] [place] [address] [facility] [place] [address] 01/21/2024 15:34:17 01/21/2024 16:12:10 Bilateral shoulder joint pain 2139344808 7373291 M25.511 left worse than right Allergic rhinitis 570802 04 J30.9 Arthritis 3586895 M19.90 Diabetes mellitus 080145 09 E11.9 Essential hypertension 11517890 I10 Gastroesop hageal reflux disease 346146382 K21.9 Osteoarthritis 902241999 M19.90 Type 2 russel betes mellitus without complication 993804813 E11.9 Hyperlipidemia 40695656 E78.5 Chronic constipation 236 115614 K59.09 Fatigue 62012167 R53.83 [id number] GÓMEZ [place] [facility] [place] [address] [facility] [place] [address] 04/21/2024 14:46:53 04/21/2024 15:20:01 Adult health examination 988536686 Z00.00 Screening for disorder 858306412 Z13.9 Screening for osteoporosis 158969188 Z13.820 Hyperlipidemia 81152981 E78.5 Cough 10739482 R05.9 Type 2 russel betes mellitus without complication 060070238 E11.9 Osteoarthritis 909019587 M19.90 Menopausal flushing 1984 94451 N95.1 Essential hypertension 60107602 I10 Allergic rhinitis 441977 04 J30.9 Health Concerns Section Related Observation LastModified by Organization Detai ls LastModified Time None Recorded Concern Status LastModified by Organization Details LastModified Time None Recorded Advance Directives Directive None Recorded Payers Encounter Date Sequence Insurance Name Policy Number Policy Scott Covered Member ID Scott Member ID Guarantor Name 01/29/2023 1 [employer] (MEDICARE REPLACEMENT/A DVANTAGE - HMO) Candy L Lakes [id number] Candy L Lakes 02/24/2023 1 [employer] (MEDICARE REPLACEMENT/A DVANTAGE - HMO) Candy L Lakes [id number] Candy L Lakes 05/14/2023 1 [employer] (MEDICARE REPLACEMENT/A DVANTAGE - HMO) Candy L Lakes [id number] Candy L Lakes 01/21/2024 1 [employer] (MEDICARE REPLACEMENT/A DVANTAGE - HMO) Candy L Lakes [id number] Candy L Lakes 04/21/2024 1 [employer] (MEDICARE REPLACEMENT/A DVANTAGE - HMO) Candy L Lakes [id number] Candy L Lakes Notes Date Note Type Note Provider Name and Address Organization Details Recorded Time 01/29/2023 text/html Here today for A 1C check. Due for the A1c check. Her stomach is not hurting as much. No nausea. Completed treatment for H. pylori. Not hungry may have gastroparesis. She is also taking ozempic for DM2 Ronna Shi MD [address], [place], [address], [employer] [facility] [employer] 01/30/2023 06:10:56 02/24/2023 text/html Here today c/o generalized rash Has been using a coconut body cream. Going on x 3 weeks. Has not taken benadryl. The rash is on arms back abdomen and legs. They itch a lot. Has been using cortisone 10 and no relief. Ronna Shi MD [address], [place], [address], [employer] [facility] [employer] 02/25/2023 06:02:21 05/14/2023 text/html Here today for A 1C check for DM2. Is due for other BW.Has skin color changes. Has not seen a dermatology. Has changes of skin color just in arms. White circular macules.Pt reports right inguinal pain that just started a couple of weeks ago.Pt also has dry skin of ears and has to scratch inside of ears since are so dry Ronna Shi MD [address], [place], [address], [employer] [facility] [employer] 05/14/2023 21:41:57 01/21/2024 text/html needs more muscl e relaxant GÓMEZ [place] [address], [place], [address], [employer] [facility] [employer] 01/24/2024 22:03:35 04/21/2024 text/html inhaler not helping , is sweating frequently , hot flashes GÓMEZ [place] [address], [place], [address], [employer] [facility] [employer] 05/07/2024 11:27:00 OBGyn Episode No OBEpisode recorded.
--- OUTSIDE RECORDS SUMMARY | 2024-08-31 08:13 | XMS_ITS | Clinical Summary ---
Author Organization [facility] Address [address] [place] [id number] Phone Care Team Providers Care Rigger Name Role Phone Ronna Shi MD Primary Care Provider [phone] Allergies Active Allergy Reactions Criticality Noted Date Comments Codeine 05/13/2020 Latex 05/13/2020 Penicillins 12/06/2020 Prednisone 12/06/2020 Tramadol Nausea Only 05/13/2020 Medications Medication Sig Dispensed Refills Start Date End Date Status insulin lispro (HUMALOG) 100 UNIT/ML injection 18 units SQ three times daily (with meals) 0 08/07/2016 Active pravastatin (PRAVACHOL) 80 MG tablet One tab daily 0 08/12/2017 Active aspirin (ASPIRIN LOW DOSE) 81 MG EC tablet One tablet daily 0 08/07/2016 Active cyclobenzaprine (FLEXERIL) 10 MG tablet one tab three times daily 0 02/11/2017 Active insulin glargine (BASAGLAR KWIKPEN) 100 UNIT/ML injection 55 units at bedtime 0 02/11/2017 Activ e albuterol HFA (Ventolin HFA) 108 (90 Base) MCG/ACT inhaler every 4 hours Active atorvastatin (LIPITOR) 20 MG tablet atorvastatin 20 mg tablet Active azelastine (OPTIVAR) 0.05 % ophthalmic solution azelastine 0.05 % eye drops Active bismuth-metroNIDAZ OLE-tetracycline (Pylera) 140-125-125 MG per capsule Pylera 140 mg-125 mg-125 mg capsule Active diclofenac (VOLTAREN) 75 MG EC tablet diclofenac sodium 75 mg tablet,delayed release TK 1 T PO BID WITH FOOD Active fenofibrate (TRICOR) 145 MG tablet fenofibrate nanocrystallized 145 mg tablet Active fluticasone (FLONASE) 50 MCG/ACT nasal spray 03/23/2020 Active Accu-Chek Kellie Plus test strip 04/19/2020 Active ibandronate (BONIVA) 150 MG tablet 04/10/2020 Active Tresiba FlexTouch 200 UNIT/ML injection INJECT 65 UNITS SUBCUTANEOUSLY ONCE DAILY 05/07/2020 Active omeprazole (PriLOSEC) [address] capsule 03/17/2020 Active triamcinolone (KENALOG) 0.1 % cream APPLY TO THE AFFECTED AREA(S) TWICE DAILY 02/14/2020 Active clobetasol (TEMOVATE) 0.05 % cream APPLY A THIN LAYER TO AFFECTED AREA(S) TWICE DAILY 06/18/2020 Active lisinopril-hydroCH LOROthiazide (PRINZIDE) 20-12.5 MG per tablet 05/18/2020 Active clotrimazole-betam ethasone (LOTRISONE) cream 12/05/2020 Active meloxicam (MOBIC) 15 MG tablet Take 15 mg by mouth 1 (one) time each day 12/03/2020 Active cromolyn (OPTICROM) 4 % ophthalmic solution cromolyn 4 % eye drops INSTILL 1 DROP INTO EACH EYE TWICE DAILY Active ammonium lactate (LAC-HYDRIN) 12 % lotion ammonium lactate 12 % lotion Active benzonatate (TESSALON) 100 MG capsule benzonatate 100 mg capsule Active famotidine (PEPCID) 40 MG tablet famotidine 40 mg tablet Active metoclopramide (REGLAN) 5 MG tablet metoclopramide 5 mg tablet TAKE 1 TABLET BY MOUTH 4 TIMES DAILY BEFORE MEAL(S) Active naproxen (NAPROSYN) 500 MG tablet naproxen 500 mg tablet Ac tive ondansetron ODT (ZOFRAN-ODT) 4 MG dispersible tablet ondansetron 4 mg disintegrating tablet Active prochlorperazine (COMPAZINE) 10 MG tablet prochlorperazine maleate 10 mg tablet TAKE 1 TABLET BY MOUTH THREE TIMES DAILY NEEDED Active traMADol (ULTRAM) 50 MG tablet tramadol 50 mg tablet A ctive insulin aspart protamine-insulin aspart (NovoLOG MIX 70/30 FLEXPEN) (70-30) 100 UNIT/ML injection Novolog Mix 70-30 FlexPen U-100 Insulin 100 unit/mL subcutaneous pen Active raNITIdine (ZANTAC) 150 MG tablet ranitidine 150 mg tablet TAKE 1 TABLET BY MOUTH TWICE DAILY Active Trulicity 1.5 MG/0.5ML solution pen-injector INJECT 1.5 MG SUB-Q ONCE WEEKLY 10/04/2021 Active NovoLOG 100 UNIT/ML solution INJECT 20 UNITS SUBCUTANEOUSLY THREE TIMES DAILY WITH MEALS 11/22/2021 Activ e NovoLOG FlexPen ReliOn 100 UNIT/ML injection INJECT 20 UNITS SUBCUTANEOUSLY THREE TIMES DAILY BEFORE MEAL(S) 10/04/2021 Active Ozempic, 1 MG/DOSE, 4 MG/3ML solution pen-injector 04/08/2022 Active cholecalciferol (VITAMIN D-3) 25 MCG (1000 UT) capsule Take 1,000 Units by mouth daily Active Active Problems Problem Noted Date Diagnosed Date Presence of left artificial shoulder joint 04/03 Closed fracture proximal humerus, four part 02/24 Avascular necrosis of bone 02/17/2022 Overview (04/09/2022): Added automatically from request for surgery [id number] Eruption 08/07/2021 Bilateral shoulder joint pain 06/17/2021 Osteoarthritis 12/06/2020 Acute bronchitis 05/13/2020 Allergic rhinitis 05/13/2020 Candidiasis of skin 05/13/2020 Chronic constipation 05/13/2020 Closed trimalleolar fracture 05/13/2020 Complication of procedure 05/13/2020 Current tear of medial cartilage AND/OR meniscus of knee 05/13/2020 Decreased renal function 05/13/2020 Diabetes mellitus 05/13/2020 Fatigue 05/13/2020 Fracture of ankle 05/13/2020 Fracture therapy follow-up 05/13/2020 Hand eczema 05/13/2020 Hyperlipidemia 05/13/2020 Injury of shoulder region 05/13/2020 Lower back injury 05/13/2020 Occult blood in stool 05/13/2020 Shoulder joint pain 05/13/2020 Submandibular lymphadenopathy 05/13/2020 Tendon contracture 05/13/2020 Thoracic back sprain 05/13/2020 Tinea corporis 05/13/2020 Acute upper respiratory infection 05/13/2020 Chronic kidney disease, stage 3 (moderate) 08/07 Essential hypertension 08/07/2016 Type 2 diabetes mellitus without complication Immunizations Name Administration Dates Next Due Influenza Recombinant Ward valent Injectable Preservative Free 04/30/2021 Influenza Split High Dose Pr eservative Free IM 04/21/2017 Influenza TIV (IM) 08/10/2015 Influenza, Injectable, Quadrivalent 04/30/2021,1 ,05/06/2016 Influenza, Injectable, Quadr ivalent, Preservative Free 04/17/2020,04/14/2019,04/22/2018,04/22 Moderna Sars-cov-2 Vaccination 05/18/2021 Pneumococcal Conjugate 04/16/2020 Pneumococcal Polysaccharide 07/12/2021, 7 Tdap 04/22/2018 Zoster Recombinant 08/09/2020,05/18/2020 Family History Medical History Relation Comments Hypertensive disorder Mother Diabetes mellitus Relative Relation Status Comments Mother Relative Other Social History Tobacco Use Types Packs/Day Years Used Date Smoking Tobacco: Never Smokeless Tobacco: Never Alcohol Use Standard Drinks/Week Comments No 0 (1 standard drink = 0.6 oz pur e alcohol) Sex and Gender Information Value Date Recorded Sex Assigned at Not on file Gender Identity Not on file Sexual Orientation Not on file Last Filed Vital Signs Vital Sign Reading Time Taken Comments Blood Pressure 132/76 04/09/2022 3:29 PM CDT Pulse 91 08/12/2017 12:01 AM [facility] Temperature 36.6 ??C (97.9 ??F) 04/09/2022 3:29 PM CD T Respiratory Rate 18 04/09/2022 3:29 PM CDT Oxygen Saturation - - Inhaled Oxygen Concentration - - Weight 75.8 kg (167 lb) 04/09/2022 3:29 PM CDT Height 154.9 cm (5' 1 ) 04/09/2022 3:29 PM CDT Body Mass Index 31.55 04/09/2022 3:29 PM CDT Plan of Treatment Health Maintenance Due Date Last Done Comments COVID-19 Vaccine (2022-2 4 season) 2024 05/18/2021 Influenza Vaccine (#1) 2024 , 04/17/2020, 04/14/2019, Additional history exists Care Teams Rigger Relationship Specialty Start Date End Date Ronna Shi MD [facility] [place] [address] PCP - General 10/12/18
[2024-08-31 09:09] LABS: Albumin Level 4.1 g/dL (3.5-5.1); Anion Gap 13 mmol/L (4-12); Blood Urea Nitrogen 24 mg/dL (7-17); Calcium 10.3 mg/dL (8.4-10.2); Carbon Dioxide 22 mmol/L (22-30); Chloride 105 mmol/L (98-107); Estimated Glomerular Filt Rate 32; Glucose 124 mg/dL (65-110); Phosphorus 4.3 mg/dL (2.5-4.5); Potassium 3.9 mmol/L (3.4-5.0); Sodium 140 mmol/L (137-145)
[2024-08-31 09:44] LABS: Parathyroid Intact 43.6 pg/mL (14.5-75.2)
[2024-08-31 09:57] LABS: Vitamin D 25 Hydroxy 41.5 ng/mL
[2024-08-31 10:02] LABS: Creatinine Urine 125.4 mg/dL; Total Protein Urine Random 10 mg/dL; Ur Ttl Prot Creatinine Ratio 0.08 mg/mg (0-0.20)
== END 2024-08-31 08:05 | disposition home or self-care (01) ==
LOC: ANHLAB 08:06
PROVIDERS: PCP Nurse Practitioner Family; Visit Provider Internal Medicine Nephrology
DX: I12.9 Hypertensive chronic kidney disease with stage 1 through stage 4 chronic kidney disease, or unspecified chronic kidney disease (principal); N18.4 Chronic kidney disease, stage 4 (severe); E11.22 Type 2 diabetes mellitus with diabetic chronic kidney disease; N25.81 Secondary hyperparathyroidism of renal origin; E55.9 Vitamin D deficiency, unspecified
CPT/HCPCS: 36415; 80069; 82306; 82570; 83970; 84156

== ENCOUNTER 2025-05-14 14:31 | Emergency (ER) | payer MEDICARE, SELFPAY ==
[2025-05-14 14:43] VITALS: BP 127/85; PULSE 75; RESP 16; TEMP 36.8; O2SAT 100
[2025-05-14] MEDS: FLUORESCEIN SOD 1 MG/STRIP EACH EYE (14:57)
[2025-05-14] MEDS: DACRIOSE EYE IRRIGATION 118 ML BOTTLE 10 ML RIGHT EYE (14:57)
[2025-05-14] MEDS: TETRACAINE HCL 0.5% OPHTH SOLN 4 ML BTL 1 DROP RIGHT EYE (14:57)
--- NOTE | 2025-05-14 15:09 | ED_ITS ---
HPI - Eye Problem General Chief complaint: Eye Problems Stated complaint: R eye irritation Time Seen by Provider: 05/14/25 14:45 Source: patient and RN notes reviewed Mode of arrival: ambulatory Limitations: no limitations History of Present Illness HPI Narrative: 64-year-old female patient presents today complaining of right eye redness and irritation with copious watering since she woke up this morning. Denies itching, photophobia, pain, vision changes. Denies symptoms in the left eye. Denies recent illness. Patient currently uses cromolyn eye drops for allergies. Visual acuity: Right eye 20/25, left eye 20/25, corrected with glasses Related Data Home Medications ?Medication ?Instructions ?Recorded ?Confirmed ?Last Taken ?Type insulin glargine 100 unit/mL (3 20 unit subcut TID 03/14/25 Unknown History mL) subcutaneous pen (Basaglar KwikPen U-100 Insulin) insulin lispro protamine-lispro 5 unit subcut QAM 06/2603/14/25 Unknown History 100 unit/mL (50-50) subcutaneous susp (Humalog Mix 50-50 Insuln U-100) aspirin 81 mg tablet,delayed 81 mg PO DAILY 03/13/20 0 03/14/25 Unknown History release (Adult Aspirin Regimen) atorvastatin 80 mg tablet 80 mg PO DAILY 03/14/2502/24 Unknown History cromolyn 4 % eye drops 1 drp EACH EYE ONCE 03/14/25 03/14/25 Unknown History denosumab 60 mg/mL subcutaneous 60 mg subcut [id number] 03/14/25 03/14/25 Unknown History syringe (Prolia) gabapentin 100 mg capsule 100 mg PO DAILY 03/14/25 Unknown History omeprazole 20 mg capsule,delayed 20 mg PO DAILY 03/14/25 Unknown History release semaglutide 2 mg/dose (8 mg/3 mL) mg subcut 03/14/25 0 03/14/25 Unknown History subcutaneous pen injector (Ozempic) Allergies Allergy/AdvReac Type Severity Reaction Status Date / Time latex Allergy Intermediate Rash Verified 03/14/25 16:10 codeine AdvReac Intermediate Nausea and Verified 03/14/25 16:10 Vomiting hydrocodone AdvReac Intermediate Nausea and Verified 03/14/25 16:10 Vomiting prednisone AdvReac Intermediate Nausea and Verified 03/14/25 16:10 Vomiting tramadol AdvReac Intermediate Dizziness Verified 03/14/25 16:10 [facility] Past Medical History Medical History Diabetes Elevated lipids Hypertension Surgical History Surgical History Hx of cholecystectomy History of section H/O knee surgery H/O shoulder surgery History of ankle surgery H/O tubal ligation Family History Family History Other Family history of arthritis Family history of malignant neoplasm Social History Social History Smoking status: Never smoker Alcohol intake: never Substance use: never Substance use type: does not use Do You Feel Safe in your Home?: Yes Lack of Transportation: No Lack of Food: Never True Current Housing: I Have Housing Concerned About Future Housing: No Difficulty Paying Gas/Electric Bills: No Difficulty Paying for Meds: No Currently Unemployed: No Education: High School Diploma/GED Difficulty w/ Childcare or Family Care: Decline to Answer Living arrangements: with family Gender identity (if verbalized by the patient): Female Spiritual care concerns: No Comments At time of signature, I have reviewed and agree with nursing past medical, surgical, social and family history unless otherwise noted. Please see nursing chart for further information. There is no relevant family history pertinent to the presenting complaint Exam Narrative: GENERAL: Well-appearing, well-nourished, and in no acute distress. HEAD: Normocephalic, atraumatic. EYES: EOMI. PERRL. Left eye normal. Right eye: Mild to moderately injected conjunctiva with copious watering. + fluorescein uptake noted upon Wood's lamp examination, consistent with corneal abrasion. See procedure note. ENT: Mucous membranes pink and moist. NECK: Normal AROM. CHEST: No respiratory distress. EXTREMITIES: Normal range of motion. No edema. SKIN: Warm, dry, no rash. Capillary refill normal. Normal skin turgor. NEURO: No focal deficits. Alert and oriented x3. Gait steady. PSYCH: Normal affect. No signs of depression or anxiety. Course Course Level of Care: Express Care Visit Vital Signs Vital signs: Vital Signs Temperature 97.9 F 05/14/25 14:43 Pulse Rate 105 H 05/14/25 14:43 Respiratory Rate 16 05/14/25 14:43 Blood Pressure 155/85 H 05/14/25 14:43 Pulse Oximetry 100 05/14/25 14:43 Temperature 97.9 F 05/14/25 14:43 Pulse Rate 105 H 05/14/25 14:43 Respiratory Rate 16 05/14/25 14:43 Blood Pressure 155/85 H 05/14/25 14:43 Pulse Oximetry 100 05/14/25 14:43 Reviewed Procedures Other Procedure Procedure 1: Other Procedure: Right eye was anesthetized with 1 drop of tetracaine and anesthesia was achieved. The eye was flushed with eye wash. Lid was inverted and examined. Cornea was dyed with fluorescein and 1 large abrasion was noted to the superior iris area. Pt tolerated procedure well. MDM - Eye Problem MDM Narrative Medical decision making narrative: 64-year-old female patient presents today complaining of right eye redness and irritation with copious watering since she woke up this morning. Denies itching, photophobia, pain, vision changes. Denies symptoms in the left eye. Upon exam, patient has mildly injected conjunctiva of the right eye with copious watering. She does have fluorescein uptake with a fairly large corneal abrasion to the superior iris area. Patient likely scratched her eye while she was sleeping last night. The patient's corneal abrasion will be treated with Polytrim eyedrops to prevent infection. Recommend following up with her eye doctor in 3 days if symptoms are not improving. Patient agrees with plan. Vital signs stable. Anticipatory guidance given. Differential Diagnosis Differential diagnosis: Likely corneal abrasion, conjunctivitis, corneal ulcer and other (Keratitis) Critical Care Time Critical Care Time Critical Care Time: No Discharge Plan Discharge Clinical Impression: Abrasion of right cornea Qualifiers: Encounter type: initial encounter Qualified Code(s): S05.01XA - Injury of conjunctiva and corneal abrasion without foreign body, right eye, initial encounter Patient Disposition: Home Condition: Stable Instructions: Corneal Abrasion (ED) Additional Instructions: Your exam shows an abrasion of your cornea. Please use the eyedrops as directed to prevent infection. Follow-up with your eye doctor in 3 days if symptoms are not improving. Take Tylenol for discomfort, if able Patient Language: Barbadian Prescriptions: New polymyxin B sulf-trimethoprim 10,000 unit- 1 mg/mL drops 1 drp RIGHT EYE QID 7 Days Qty: 10 0RF No Action aspirin [Adult Aspirin Regimen] 81 mg tablet,delayed release (DR/EC) 81 mg PO DAILY Basaglar KwikPen U-100 Insulin 100 unit/mL (3 mL) insulin pen 20 unit SUB-Q TID Humalog Mix 50-50 Insuln U-100 100 unit/mL (50-50) suspension 5 unit SUB-Q QAM atorvastatin 80 mg tablet 80 mg PO DAILY cromolyn 4 % drops 1 drp EACH EYE ONCE omeprazole 20 mg capsule,delayed release(DR/EC) 20 mg PO DAILY gabapentin 100 mg capsule 100 mg PO DAILY Prolia 60 mg/mL syringe 60 mg subcut [id number] Ozempic 2 mg/dose (8 mg/3 mL) pen injector subcut Follow-up/Referrals: UNKNOWN,DOCTOR [Primary Care Provider] Time of Disposition: 15:15
[2025-05-14 15:28] VITALS: BP 155/85; PULSE 105; RESP 16; TEMP 36.6; O2SAT 100
== END 2025-05-14 15:18 | disposition home or self-care (01) ==
PROVIDERS: Emergency Provider Nurse Practitioner
DX: S05.01XA Injury of conjunctiva and corneal abrasion without foreign body, right eye, initial encounter (principal); X58.XXXA Exposure to other specified factors, initial encounter; E11.9 Type 2 diabetes mellitus without complications; Z79.4 Long term (current) use of insulin; Z79.85 Long-term (current) use of injectable non-insulin antidiabetic drugs; I10 Essential (primary) hypertension; Z79.82 Long term (current) use of aspirin
CPT/HCPCS: 99213; A9270; G0463